=== PATIENT | female | born 1965 | race Caucasian/White ===

== ENCOUNTER 2017-07-12 08:16 | Emergency (ER) | payer OTHER, SELFPAY ==
[2017-07-12 08:16] VITALS: BP 113/69; PULSE 87; RESP 17; TEMP 36.7; O2SAT 99; BMI 34.7
--- NOTE | 2017-07-12 08:26 | ED.VISSUMM ---
- ER Visit Summary Date of Service: 07/12/17 Chief Complaint: Left thumb laceration History of Present Illness: The patient is a 51 F who cut her distal left thumb with a knife just prior to arrival. Patient is right-hand dominant. She is unsure of her last tetanus update. Physical Examination: Vital signs unremarkable. Patient sitting upright in bed no acute distress. Left upper extremity examination reveals a 2 cm laceration of the radial aspect of the left distal thumb. Normal range of motion is noted. She is normal cap refill and sensation distally. Test Results: [] Emergency Department Course and Treatment: Tetanus update will be provided. Digital block is performed with 2 cc of 1% lidocaine. Wound is cleansed and irrigated. 5 simple interrupted sutures of 5-0 nylon are placed with good approximation. Dressing is applied. Sutures will be removed in 5-7 days. Treatment Plan: [] Disposition: Discharge Impression: Left thumb laceration status post suture This note was generated with [employer] dictation software. It may contain incorrect words, spelling, and punctuation that were not noted in review of the chart prior to signing ED Disposition - Plan for ED Patient: Chief Complaint: Laceration Referrals: Payam Slaes [Primary Care Provider] -
--- NOTE | 2017-07-12 08:52 | ED.DEP ---
ED Disposition - Plan for ED Patient: Disposition: Home or Assisted Living Chief Complaint: Laceration Instructions: ED Laceration Hand Referrals: Payam Sales [Primary Care Provider] - 7 Days for suture removal
[2017-07-12] MEDS: Diphth,Pertuss(Acell),Tet Vac 0.5 ML Vial IM (09:01)
== END 2017-07-12 09:27 | disposition home or self-care (01) ==
PROVIDERS: Emergency Provider Emergency Medicine; Family Provider Internal Medicine; PCP Internal Medicine
DX: S61.012A Laceration without foreign body of left thumb without damage to nail, initial encounter (principal); W26.0XXA Contact with knife, initial encounter; K21.9 Gastro-esophageal reflux disease without esophagitis
CPT/HCPCS: 12001; 90471; 90715; 99283

== ENCOUNTER 2019-06-08 12:08 | Emergency (ER) | payer OTHER, SELFPAY ==
[2019-06-08 12:09] VITALS: BP 143/89; PULSE 88; RESP 18; TEMP 36.6; O2SAT 96; BMI 31.2
--- NOTE | 2019-06-08 12:37 | RAD_ITS ---
STUDY: X-RAY - LEFT HAND REASON FOR EXAM: Female, 53 years old. Pain at the base of the thumb and fourth metacarpal following injury. TECHNIQUE: 3 view(s) of the hand. COMPARISON: None. FINDINGS: Normal radiocarpal articulation. Normal distal radioulnar joint. Normal visualized carpal bones. Normal carpal articulations Normal carpometacarpal articulation of the thumb. Normal second through fifth carpometacarpal joints. Normal metacarpi. Normal metacarpophalangeal joint of the thumb. Normal interphalangeal joint of the thumb. Normal proximal and distal phalanges of the thumb. Normal metacarpophalangeal joints of the second through fifth fingers. Normal proximal and distal interphalangeal joints of the second through fifth fingers. Normal phalanges of the second through fifth fingers. Soft tissue swelling. RAD/Hand Min 3 Views IMPRESSION: Soft tissue swelling. Electronically Signed: Suman Kiser, at 13:14 EST , Service support ,
[2019-06-08] MEDS: Naproxen 500 MG Tablet PO (13:00)
--- NOTE | 2019-06-08 13:23 | ED.VISSUMM ---
- ER Visit Summary Date of Service: 06/08/19 Chief Complaint: Left hand injury History of Present Illness: The patient is a 53 F who presents with a left hand injury that occurred today. Patient states she closed her hand in her car door. Patient states the pain is worse over the first metacarpal and over the distal fourth metacarpal. Patient states the pain is worse with movement. Patient admits to some tingling in her thumb. Patient is right-hand dominant. Physical Examination: Vital signs are stable. Patient is afebrile. Patient is in no acute distress. Musculoskeletal exam reveals contusion and hematoma over the left first metacarpal and over the distal fourth and fifth metacarpal areas. There is no bony crepitance or step-off. There is no obvious deformity noted. Range of motion was limited in all motions of the left hand secondary to pain. Strength is 5/5 bilaterally in the radial, median, and ulnar areas. Sensation was intact light touch in the radial median and ulnar areas. Radial pulses are equal bilateral. Capillary refill is less than 2 seconds in all digits. Test Results: X-rays of the left hand were obtained. There is no acute fracture. These were interpreted by the radiologist and myself. Emergency Department Course and Treatment: Patient was given a dose of Naprosyn here. Patient was given ice pack. Patient was instructed to ice and elevate the left hand. Patient was instructed to take Tylenol or ibuprofen as needed for pain. Patient was instructed to follow-up with her primary care physician in 5 to 7 days. Patient understood and was agreeable with the plan. All questions were answered. Disposition: Discharge home Impression: Left hand contusion This note was generated with [employer] dictation software. It may contain incorrect words, spelling, and punctuation that were not noted in review of the chart prior to signing ED Disposition - Plan for ED Patient: Disposition: Home or Assisted Living Diagnosis: Contusion of left hand, initial encounter Instructions: CONTUSION, Upper Extremity Referrals: [facility] Doctor,Out of [Primary Care Provider] - 5-7 Days
== END 2019-06-08 13:33 | disposition home or self-care (01) ==
PROVIDERS: Emergency Provider Emergency Medicine; Family Provider Internal Medicine
DX: S60.222A Contusion of left hand, initial encounter (principal); W23.0XXA Caught, crushed, jammed, or pinched between moving objects, initial encounter; Y93.9 Activity, unspecified; Y92.9 Unspecified place or not applicable; M79.7 Fibromyalgia; E03.9 Hypothyroidism, unspecified; Z86.73 Personal history of transient ischemic attack (TIA), and cerebral infarction without residual deficits; Z79.82 Long term (current) use of aspirin; Z79.899 Other long term (current) drug therapy
CPT/HCPCS: 73130; 99283

== ENCOUNTER 2020-09-03 13:16 | Outpatient (RCR) | payer BC, SELFPAY ==
[2020-09-06] MEDS: COVID-19 VACC, MRNA(PFIZER)/PF 30 MCG/0.3 ML SYRINGE IM (16:17)
== END 2020-11-26 23:59 ==
LOC: IMMUN 13:16
PROVIDERS: PCP Family Medicine Sports Medicine; Visit Provider Family Medicine
DX: Z23 Encounter for immunization (principal)
CPT/HCPCS: 0001A; 91300

== ENCOUNTER → 2021-04-15 15:35 | Outpatient (CLI) | payer BC, SELFPAY ==
--- NOTE | 2021-04-15 15:37 | RAD_ITS ---
STUDY: X-RAY - RIGHT FOOT CLINICAL: Female, 55 years old. FOOT PAIN TECHNIQUE: 3 view(s) of the foot. COMPARISON: None. FINDINGS: Normal talus, calcaneus, and tarsal bones. Normal visualized subtalar, talonavicular, calcaneocuboid, tarsal and tarsometatarsal articulations. Normal metatarsi. Normal metatarsophalangeal joint of the great toe. Normal tibial and fibular sesamoid bones. Normal interphalangeal joint of the great toe. Normal phalanges of the great toe. Normal second through fifth metatarsophalangeal joints. Normal interphalangeal joints and phalanges of the lesser toes. The soft tissue structures are unremarkable. RAD/Foot min 3 Views IMPRESSION: Normal x-ray examination of the foot. Electronically Signed: Daniel Ortiz MD at 16:17 EDT , Service support ,
== END ==
PROVIDERS: PCP Family Medicine Sports Medicine; Referring Provider Podiatrist; Visit Provider Podiatrist
DX: M19.071 Primary osteoarthritis, right ankle and foot (principal)
CPT/HCPCS: 73630